=== PATIENT | female | born 1990 | race Caucasian/White ===

== ENCOUNTER 2022-10-04 10:09 | Inpatient (IN) | payer BC ==
[~2022-10-04 10:09] MED LIST: Bicitra 30 ML UDCUP PO PRN; Clindamycin/D5W 900 MG in Premix Bag 1 BAG IVPB SCH; Famotidine/PF 20 mg/2ml Vial SLOW IVP PRN; Lactated Ringer's 1,000 ML IV SCH; Ondansetron PF 4 MG/2 ML Vial IVP PRN; Promethazine HCl 25 MG/ML VIAL IM PRN; hydrALAZINE 20 MG/ML VIAL SLOW IVP PRN
[2022-10-04 11:06] VITALS: BMI 36.3
[2022-10-04 11:29] LABS: Hemoglobin 11.6 g/dL (12.0-15.5); Mean Corpuscular HGB CONC 34.7 g/dL (32.0-36.0); Mean Corpuscular Hemoglobin 31.4 pg (27.0-33.0); Mean Corpuscular Volume 90.3 fl (81.6-98.3); Mean Platelet Volume 10.5 fl (7.4-10.4); Platelet Count 254 10x3/uL (150-450); RBC Distribution Width 12.2 % (11.5-14.5)
[2022-10-04] MEDS ORDERED: GENTAMICIN SULFATE IVPB SCH (11:30)
[2022-10-04] MEDS ORDERED: SODIUM CHLORIDE 0.9% IVPB SCH (11:30)
[2022-10-04] MEDS ORDERED: Dexamethasone 4 mg/ml Vial ONE (11:44)
[2022-10-04] MEDS ORDERED: Oxytocin 10 UNITS/ML VIAL ONE (11:44)
[2022-10-04] MEDS ORDERED: Ondansetron PF 4 MG/2 ML Vial ONE (11:44)
[2022-10-04] MEDS ORDERED: Morphine PF 10 MG/10 ML VIAL ONE (11:44)
[2022-10-04] MEDS ORDERED: Ketorolac Tromethamine 30 MG/ML VIAL ONE (11:45)
[2022-10-04 12:10] LABS: HBSAg Index 0.14 S/CO (0-0.99); Hep B Surf Ag Non-Reactive S/CO (NonReactive)
[2022-10-04 12:12] LABS: Syphilis Antibody Nonreactive (Nonreactive); Syphilis Antibody Index 0.02 S/CO (<1.00 Non-Reactive)
[2022-10-04 12:30] LABS: HIV (1/2) Antibody/Antigen Non-Reactive (NonReactive); HIV 1/2 INDEX 0.05 S/CO (<1.00)
[2022-10-04] MEDS ORDERED: Moisturizing Cream (Eucerin) 113 GM JAR TOP PRN (13:24)
[2022-10-04] MEDS ORDERED: Fentanyl 100 MCG/2 ML VIAL SLOW IVP PRN (13:24)
[2022-10-04] MEDS ORDERED: Naloxone HCl 0.4 mg/ml Vial IVP PRN ×2 (13:24)
[2022-10-04] MEDS ORDERED: Promethazine HCl 25 MG SUPP PR PRN (13:24)
[2022-10-04] MEDS ORDERED: Meperidine HCl/PF 25 MG/ML VIAL SLOW IVP PRN (13:24)
[2022-10-04] MEDS ORDERED: Ondansetron PF 4 MG/2 ML Vial IVP PRN ×2 (13:24→16:13)
[2022-10-04] MEDS ORDERED: Naloxone HCl 0.4 mg/ml Vial IV PRN (13:24)
[2022-10-04] MEDS ORDERED: Promethazine HCl 25 MG/ML VIAL IM PRN ×2 (13:24→16:13)
[2022-10-04] MEDS ORDERED: Ondansetron HCl/PF 4 MG/2 ML Vial IVP PRN (13:24)
[2022-10-04] MEDS ORDERED: diphenhydrAMINE 50 MG/ML VIAL IVP PRN (13:24)
[2022-10-04] MEDS ORDERED: Ketorolac Tromethamine 30 MG/ML VIAL IVP SCH (13:30)
[2022-10-04] MEDS ORDERED: Communication Order-Pharmacy FS SCH (13:30)
[2022-10-04] MEDS ORDERED: Misoprostol 200 MCG TAB PR PRN (16:13)
[2022-10-04] MEDS ORDERED: Methylergonovine 0.2 MG/ML VIAL IM PRN (16:13)
[2022-10-04] MEDS ORDERED: Bisacodyl 10 MG SUPP PR PRN (16:13)
[2022-10-04] MEDS ORDERED: Measles/Mumps/Rubella 10 MCG/0.5 ML VIAL SC ONE (16:13)
[2022-10-04] MEDS ORDERED: NS w/ Oxytocin 30 units 500 ML IV SCH (16:13)
[2022-10-04] MEDS ORDERED: Varicella virus, LIVE 0.5 ML VIAL SC ONE (16:13)
[2022-10-04] MEDS ORDERED: hydrALAZINE 20 MG/ML VIAL SLOW IVP PRN (16:13)
[2022-10-04] MEDS ORDERED: diphenhydrAMINE 25 MG CAP PO PRN (16:13)
[2022-10-04] MEDS ORDERED: Lanolin Ointment 7 GM TUBE TOP PRN (16:13)
[2022-10-04] MEDS ORDERED: Boostrix 0.5 ML (Tdap) VIAL (>/=7 yrs of age) IM ONE (16:13)
[2022-10-04] MEDS: Ferrous Sulfate 325 MG TAB PO SCH (20:49)
[2022-10-04] MEDS: Docusate 100 MG CAP PO SCH (20:49)
[2022-10-04] MEDS: Ketorolac Tromethamine 30 MG/ML VIAL IVP PRN (21:57)
[2022-10-05] MEDS: HYDROcodone/Acetaminophen 5/325 mg Tablet PO PRN ×4 (05:00→17:52)
[2022-10-05] MEDS: Ketorolac Tromethamine 30 MG/ML VIAL IVP PRN (05:00)
[2022-10-05 05:37] LABS: Hemoglobin 9.6 g/dL (12.0-15.5); Mean Corpuscular Hemoglobin 31.2 pg (27.0-33.0); Mean Corpuscular Volume 91.6 fl (81.6-98.3); Mean Platelet Volume 10.6 fl (7.4-10.4); Platelet Count 197 10x3/uL (150-450); RBC Distribution Width 12.2 % (11.5-14.5); Red Blood Cell (RBC) Count 3.08 10x6/uL (3.90-5.03); White Blood Cell (WBC) Count 11.6 10x3/uL (3.5-10.5)
[2022-10-05] MEDS: Prenatal Vitamin 1 TAB PO SCH (08:46)
[2022-10-05] MEDS: Ferrous Sulfate 325 MG TAB PO SCH ×2 (08:46→21:41)
[2022-10-05] MEDS: Docusate 100 MG CAP PO SCH ×2 (08:46→21:41)
[2022-10-05] MEDS: Ibuprofen 800 MG TAB PO SCH ×2 (13:30→21:41)
[2022-10-05] MEDS: Simethicone Chewable 80 MG TAB PO PRN ×2 (17:53→21:42)
[2022-10-05] MEDS ORDERED: Zolpidem Tartrate 5 MG TAB PO PRN (21:00)
[2022-10-06] MEDS: Simethicone Chewable 80 MG TAB PO PRN (04:44)
[2022-10-06] MEDS: Ibuprofen 800 MG TAB PO SCH ×2 (04:44→13:58)
[2022-10-06] MEDS: HYDROcodone/Acetaminophen 5/325 mg Tablet PO PRN ×2 (04:44→13:58)
[2022-10-06 09:30] VITALS: BP 110/65; TEMP 98.6
[2022-10-06] MEDS: Ferrous Sulfate 325 MG TAB PO SCH (09:47)
[2022-10-06] MEDS: Docusate 100 MG CAP PO SCH (09:47)
[2022-10-06] MEDS: Prenatal Vitamin 1 TAB PO SCH (09:47)
== END 2022-10-06 15:33 | disposition home or self-care (01) | DRG 788 ==
LOC: CSHLD 10:09 → CSHPED 16:00
PROVIDERS: ADMIT Obstetrics & Gynecology; ATTEND Obstetrics & Gynecology
PROC: 10D00Z1 Extraction of Products of Conception, Low, Open Approach (ICD-10-PCS; principal; 2022-10-04)
DX: O34.211 Maternal care for low transverse scar from previous cesarean delivery (principal); Z3A.39 39 weeks gestation of pregnancy; Z37.0 Single live birth; E66.9 Obesity, unspecified; O99.214 Obesity complicating childbirth; Z88.1 Allergy status to other antibiotic agents
CPT/HCPCS: 36415; 51702; 85027; 86780; 86850; 86900; 86901; 87340; 87389; J1100; J1885; J2274; J2310; J2405; J2590; J3490; S0028